=== PATIENT | female | born 2000 | race Caucasian/White ===

== ENCOUNTER 2019-03-24 22:06 | Emergency (ER) | payer OTHER ==
[~2019-03-24] VITALS: Ht 167.6 cm; Wt 59.1 kg
[2019-03-24 22:31] VITALS: TEMP 98.3
[2019-03-25] MEDS ORDERED: PREDNISONE20 MG PO (00:19)
[2019-03-25 00:54] VITALS: BP 137/81; PULSE 79
== END 2019-03-25 00:54 | disposition home or self-care (01) ==
LOC: COL.ER 22:06
DX: T78.1XXA Other adverse food reactions, not elsewhere classified, initial encounter (principal)
CPT/HCPCS: J7512